=== PATIENT | male | born 1955 | race Caucasian/White ===

== ENCOUNTER 2021-04-24 15:37 | Outpatient (REF) | payer MEDICARE, OTHER, SELFPAY ==
[2021-04-25 18:26] LABS: PSA, Screening 3.7 ng/mL (0.0-4.5)
== END 2021-04-24 15:38 | disposition home or self-care (01) ==
LOC: NCHCN 15:37
PROVIDERS: PCP Family Medicine; Visit Provider Nurse Practitioner Community Health
DX: Z12.5 Encounter for screening for malignant neoplasm of prostate (principal); N40.0 Benign prostatic hyperplasia without lower urinary tract symptoms; R35.0 Frequency of micturition
CPT/HCPCS: 84153

== ENCOUNTER 2021-07-02 19:22 | Outpatient (REF) | payer MEDICARE, OTHER, SELFPAY ==
[2021-07-03 16:01] LABS: COVID-19 RT-PCR UVMMC Result Negative (Negative)
== END 2021-07-02 19:23 | disposition home or self-care (01) ==
LOC: NCHCN 19:22
PROVIDERS: PCP Family Medicine; Visit Provider Family Medicine
DX: Z20.822 Contact with and (suspected) exposure to COVID-19 (principal); J06.9 Acute upper respiratory infection, unspecified
CPT/HCPCS: U0003; U0005

== ENCOUNTER 2021-07-18 15:22 | Outpatient (REF) | payer MEDICARE, OTHER, SELFPAY ==
[2021-07-18 20:54] LABS: Abs Immature Grans 0.02 10^3/uL (0.0-0.06); Absolute Basophil Count 0.02 10^3/uL (0.0-0.2); Absolute Eosinophil Count 0.16 10^3/uL (0.0-0.7); Absolute Lymphocyte Count 0.89 10^3/uL (1.2-3.4); Absolute Neutrophil Count 5.93 10^3/uL (1.2-6.7); Basophils % 0.3; Eosinophils % 2.1; HCT 38.1 % (40.0-50.0); HGB 12.3 g/dL (13.5-17.5); Immature Grans % 0.3; Lymphocytes % 11.7; MCH 29.4 pg (27.0-33.0); MCHC 32.3 % (32.0-36.0); MCV 91.1 fL (80-95); MPV 9.8 fL (8.0-11.0); Monocytes % 7.9; Neutrophils % 77.7; Nucleated RBC 0 %; Platelet Count 268 10^3/uL (130-400); RBC 4.18 10^6/uL (4.36-5.78); WBC 7.62 10^3/uL (4.4-10.8)
[2021-07-18 21:13] LABS: ALT 50 U/L (16-63); AST 27 U/L (15-37); Albumin 3.4 g/dL (3.4-5.0); Alkaline Phosphatase 111 U/L (46-116); BUN 37 mg/dL (7-18); Bilirubin, Total 0.4 mg/dL (0.2-1.0); CREATININE 1.9 mg/dL (0.70-1.30); Calcium 8.4 mg/dL (8.5-10.1); Chloride 104 mmol/L (98-107); Estimated GFR 35.54 (mL/min/1.73m2); Glucose 106 mg/dL (74-106); Potassium 5.2 mmol/L (3.5-5.1); Sodium 137 mmol/L (136-145); TSH (W/Ref FT4) 1.34 uIU/mL (0.36-3.74); Total Protein 6.3 g/dL (6.4-8.2)
[2021-07-19 17:55] LABS: PSA, Screening 3.5 ng/mL (0.0-4.5)
== END 2021-07-18 15:23 | disposition home or self-care (01) ==
LOC: NCHCN 15:22
PROVIDERS: PCP Family Medicine; Visit Provider Family Medicine
DX: R61 Generalized hyperhidrosis (principal); Z12.5 Encounter for screening for malignant neoplasm of prostate
CPT/HCPCS: 80053; 84153; 84443; 85025

== ENCOUNTER 2022-05-06 13:48 | Outpatient (REF) | payer MEDICARE, SELFPAY ==
[2022-05-06 15:37] LABS: ALT 51 U/L (16-63); AST 39 U/L (15-37); Albumin 3.5 g/dL (3.4-5.0); Alkaline Phosphatase 50 U/L (46-116); Anion Gap 5.8 mmol/L (3-11); BUN 26 mg/dL (7-18); Bilirubin, Total 0.5 mg/dL (0.2-1.0); CO2 28.2 mmol/L (21.0-32.0); CREATININE 1.3 mg/dL (0.70-1.30); Calcium 8.6 mg/dL (8.5-10.1); Calculated LDL 150 mg/dL (<100); Chloride 106 mmol/L (98-107); Cholesterol 210 mg/dL (<200); Estimated GFR 59.84 (mL/min/1.73m2); Glucose 100 mg/dL (74-106); HDL Cholesterol 48 mg/dL (40-60); Potassium 4.3 mmol/L (3.5-5.1); Sodium 140 mmol/L (136-145); Total Protein 6.6 g/dL (6.4-8.2); Triglyceride 63 mg/dL (<150)
== END 2022-05-06 13:49 | disposition home or self-care (01) ==
LOC: NCHCN 13:48
PROVIDERS: PCP Family Medicine; Visit Provider Family Medicine
DX: Z00.00 Encounter for general adult medical examination without abnormal findings (principal); Z13.220 Encounter for screening for lipoid disorders
CPT/HCPCS: 80053; 80061

== ENCOUNTER → 2023-07-01 09:43 | Outpatient (BNVA) | payer MEDICARE, SELFPAY | PROVIDERS: PCP Internal Medicine; Referring Provider Internal Medicine; Visit Provider Physician Assistant Surgical | DX: R05.9 Cough, unspecified (principal); J34.89 Other specified disorders of nose and nasal sinuses; J32.9 Chronic sinusitis, unspecified | CPT/HCPCS: 99205 ==

== ENCOUNTER 2023-08-07 17:18 | Outpatient (REF) | payer MEDICARE, SELFPAY ==
[2023-08-07 21:23] LABS: ALT 64 U/L (16-63); AST 36 U/L (15-37); Albumin 3.1 g/dL (3.4-5.0); Alkaline Phosphatase 71 U/L (46-116); Anion Gap 8.2 mmol/L (3-11); BUN 52 mg/dL (7-18); Bilirubin, Total 0.3 mg/dL (0.2-1.0); CO2 26.8 mmol/L (21.0-32.0); CREATININE 1.7 mg/dL (0.70-1.30); Calcium 8.9 mg/dL (8.5-10.1); Chloride 102 mmol/L (98-107); Glucose 125 mg/dL (74-106); Potassium 4.7 mmol/L (3.5-5.1); Sodium 137 mmol/L (136-145); Total Protein 6.7 g/dL (6.4-8.2)
[2023-08-07 21:45] LABS: Vitamin D 25 Total 48.6 ng/mL (30-100)
[2023-08-10 09:55] LABS: PSA, Screening 3.3 ng/mL (<=4.5)
[2023-08-10 11:41] LABS: IgA 132 mg/dL (85-499); Interpretation (See Note); Tissue Transglutaminase IgA 56.3 CU (<20.0)
== END 2023-08-07 17:19 | disposition home or self-care (01) ==
LOC: NCHCN 17:18
PROVIDERS: PCP Internal Medicine; Visit Provider Family Medicine
DX: N17.9 Acute kidney failure, unspecified (principal); N18.9 Chronic kidney disease, unspecified; R19.7 Diarrhea, unspecified; N40.0 Benign prostatic hyperplasia without lower urinary tract symptoms; Z12.5 Encounter for screening for malignant neoplasm of prostate; Z79.899 Other long term (current) drug therapy
CPT/HCPCS: 80053; 82306; 82784; 83516; 84153

== ENCOUNTER 2025-03-08 15:03 | Outpatient (REF) | payer MEDICARE, SELFPAY ==
[2025-03-08 15:17] LABS: Calculated LDL 164 mg/dL (<100); Cholesterol 230 mg/dL (<200); Glucose 110 mg/dL (74-106); HDL Cholesterol 45 mg/dL (>or=40); Triglyceride 107 mg/dL (<150)
== END 2025-03-08 15:04 | disposition home or self-care (01) ==
LOC: NCHCN 15:03
PROVIDERS: PCP Internal Medicine; Visit Provider Family Medicine
DX: Z13.1 Encounter for screening for diabetes mellitus (principal); E78.5 Hyperlipidemia, unspecified
CPT/HCPCS: 80061; 82947